=== PATIENT | male | born 1955 | race Two or more races ===

== ENCOUNTER 2017-02-04 18:57 | Emergency (ER) | payer OTHER ==
[~2017-02-04] VITALS: Ht 185.4 cm; Wt 102.3 kg
[2017-02-04] MEDS ORDERED: NORCOTAB PO (19:44)
[2017-02-04] MEDS ORDERED: PENI500T PO (19:44)
[2017-02-04] MEDS ORDERED: NORCO 5/325MG TABLET (BULK FOR ED) PO ONE (20:45)
[2017-02-04] MEDS ORDERED: PENICILLIN V POTASSIUM 500 MG TAB PO ONE (20:45)
[2017-02-04 20:54] VITALS: BP 144/88
== END 2017-02-04 20:55 | disposition home or self-care (01) ==
LOC: M ED 18:57
DX: K02.9 Dental caries, unspecified (principal); K04.7 Periapical abscess without sinus